=== PATIENT | male | born 1995 | race American Indian/Alaskan Native ===

== ENCOUNTER 2017-07-30 23:40 | Emergency (ER) | payer SELFPAY ==
[2017-07-31 00:16] VITALS: BP 134/49
== END 2017-07-31 00:30 | disposition left against medical advice (07) ==
LOC: ED 23:40
DX: R51 Headache (principal); K08.89 Other specified disorders of teeth and supporting structures; Z53.21 Procedure and treatment not carried out due to patient leaving prior to being seen by health care provider